=== PATIENT | female | born 1970 ===

== ENCOUNTER 2023-06-03 08:59 | Day surgery (SDC) | payer MEDICAID ==
[~2023-06-03] VITALS: Ht 160 cm; Wt 95.3 kg
[2023-06-03 07:33] VITALS: O2SAT 98
[~2023-06-03 08:59] MED LIST: DEXAMETHASONE SOD PHOSPHATE 4 MG/ML VIAL ONE; HYDROmorphone 1 MG/ML INJ. CARTRIDGE IVP PRN; IBUPROFEN 600 MG TABLET PO ONE; KETOROLAC TROMETHAMINE 30 MG VIAL IVP PRN; KETOROLAC TROMETHAMINE 30 MG VIAL ONE; LR 1,000 ML IV.SOLN IV ONE; METOCLOPRAMIDE HCL 10 MG/2 ML VIAL IVP PRN; MIDAZOLAM HCL/PF 2 MG/2 ML SYRINGE ONE; NS 1000 ML IV.SOLN IV ONE; NS IRRIG SOLN 1000 ML IR ONE; ONDANSETRON HCL 4 MG/2 ML VIAL IVP PRN; ONDANSETRON HCL 4 MG/2 ML VIAL ONE; PROPOFOL 200MG/ 20ML VIAL (DIPRIVAN) IV ONE; SEVOFLURANE 15 MIN GAS INH ONE; fentaNYL CITRATE/PF 100 MCG/2 ML AMP ONE
[2023-06-03] MEDS ORDERED: METOCLOPRAMIDE HCL 10 MG/2 ML VIAL ONE (09:38)
[2023-06-03] MEDS ORDERED: ONDANSETRON HCL 4 MG/2 ML VIAL ONE (09:52)
[2023-06-03 12:52] VITALS: BP_SYST 110; PULSE 78; RESP 17
== END 2023-06-03 12:00 | disposition home or self-care (01) ==
LOC: SDS 08:59 → SMU 09:00 → SDS 12:00
PROVIDERS: ATTEND Urology
DX: N13.2 Hydronephrosis with renal and ureteral calculous obstruction (principal); K21.9 Gastro-esophageal reflux disease without esophagitis; E66.01 Morbid (severe) obesity due to excess calories; J45.909 Unspecified asthma, uncomplicated; Z79.899 Other long term (current) drug therapy
CPT/HCPCS: 87081; 52356; 82360; 88300; J1100; J1885; J2765; J3465; J2405; J2704; J3010; Q9967; J7120; J7030; C1758; C2625; 76000